=== PATIENT | female | born 1975 | race Hispanic/Latino ===

== ENCOUNTER 2018-11-05 18:11 | Emergency (ER) | payer OTHER ==
[2018-11-05] MEDS ORDERED: DEXAMETHASONE 4 MG TAB ONE (19:56)
[2018-11-05] MEDS ORDERED: AMOX/K CLAV 875 MG TAB ONE (19:56)
--- NOTE | 2018-11-05 20:44 | EDPHYS ---
Physician Documentation [facility] Name: Corinne Luther Age: 43 yrs Sex: Female : 1975 Arrival Date: 11/05/2018 Time: 18:13 Bed 25 Private MD: ED Physician Fred Kimbrough HPI: 11/05 19:37 This 43 yrs old Female presents to ER via Ambulatory with complaints of Cough, snw Congestion. 19:37 The patient or guardian reports airway noise, cough, with no sputum, hoarse voice. snw Onset: The symptoms/episode began/occurred suddenly, 3 day(s) ago, and became persistent. Severity of symptoms: At their worst the symptoms were moderate. Associated signs and symptoms: Pertinent positives: fever, sore throat. The patient has not experienced similar symptoms in the past. The patient has not recently seen a physician. SAFETY RISK LEAD: 18:25 LMP 10/13/2018 aj1 Historical: - Allergies: 18:25 No Known Allergies; aj1 - Home Meds: 18:25 None [Active]; aj1 - PMHx: 18:25 None; aj1 - PSHx: 18:25 None; aj1 - Immunization history:: Flu vaccine is not up to date. - Social history:: Smoking status: Patient/guardian denies using tobacco. - Ebola Screening: : Patient denies travel to an Ebola-affected area in the 21 days before illness onset. ROS: 19:37 Eyes: Negative for injury, pain, redness, and discharge. snw 19:37 Neck: Negative for injury, pain, and swelling, Cardiovascular: Negative for chest pain, palpitations, and edema. 19:37 Abdomen/GI: Negative for abdominal pain, nausea, vomiting, diarrhea, and constipation, Back: Negative for injury and pain, : Negative for injury, bleeding, discharge, and swelling, MS/Extremity: Negative for injury and deformity, Skin: Negative for injury, rash, and discoloration, Neuro: Negative for headache, weakness, numbness, tingling, and seizure. 19:37 Constitutional: Positive for body aches, fever, malaise. 19:37 ENT: Positive for sore throat. 19:37 Respiratory: Positive for cough, with no reported sputum. Exam: 19:37 Constitutional: This is a well developed, well nourished patient who is awake, alert, snw and in no acute distress. Head/Face: Normocephalic, atraumatic. Eyes: Pupils equal round and reactive to light, extra-ocular motions intact. Lids and lashes normal. Conjunctiva and sclera are non-icteric and not injected. Cornea within normal limits. Periorbital areas with no swelling, redness, or edema. ENT: Nares patent. No nasal discharge, no septal abnormalities noted. Tympanic membranes are normal and external auditory canals are clear. Oropharynx with no redness, swelling, or masses, exudates, or evidence of obstruction, uvula midline. Mucous membranes moist. Neck: Trachea midline, no thyromegaly or masses palpated, and no cervical lymphadenopathy. Supple, full range of motion without nuchal rigidity, or vertebral point tenderness. No Meningismus. Chest/axilla: Normal chest wall appearance and motion. Nontender with no deformity. No lesions are appreciated. Cardiovascular: Regular rate and rhythm with a normal S1 and S2. No gallops, murmurs, or rubs. Normal PMI, no JVD. No pulse deficits. Respiratory: Lungs have equal breath sounds bilaterally, clear to auscultation and percussion. No rales, rhonchi or wheezes noted. No increased work of breathing, no retractions or nasal flaring. Abdomen/GI: Soft, non-tender, with normal bowel sounds. No distension or tympany. No guarding or rebound. No evidence of tenderness throughout. Back: No spinal tenderness. No costovertebral tenderness. Full range of motion. Skin: Warm, dry with normal turgor. Normal color with no rashes, no lesions, and no evidence of cellulitis. MS/ Extremity: Pulses equal, no cyanosis. Neurovascular intact. Full, normal range of motion. Neuro: Awake and alert, GCS 15, oriented to person, place, time, and situation. Cranial nerves II-XII grossly intact. Motor strength 5/5 in all extremities. Sensory grossly intact. Cerebellar exam normal. Normal gait. Psych: Awake, alert, with orientation to person, place and time. Behavior, mood, and affect are within normal limits. Vital Signs: 18:25 Pulse 97; Resp 18; Temp 98.8; Pulse Ox 99% on R/A; Weight 70.76 kg (R); Height 4 ft. 11 aj1 in. (149.86 cm) (R); Pain 8/10; 18:28 BP 152 / 96; aj1 18:25 Body Mass Index 31.51 (70.76 kg, 149.86 cm) aj1 MDM: 19:28 Patient medically screened. snw 19:42 Data reviewed: vital signs, nurses notes. Data interpreted: Pulse oximetry: on room air snw is 99 %. Interpretation: normal. Counseling: I had a detailed discussion with the patient and/or guardian regarding: the historical points, exam findings, and any diagnostic results supporting the discharge/admit diagnosis, the presence of at least one elevated blood pressure reading (>120/80) during this emergency department visit, lab results, to return to the emergency department if symptoms worsen or persist or if there are any questions or concerns that arise at home. Special discussion: Based on the history and exam findings, there is no indication for further emergent testing or inpatient evaluation. I discussed with the patient/guardian the need to see the primary care provider for further evaluation of the symptoms. 11/05 18:28 Order name: Flu; Complete Time: 19:28 aj 11/05 18:28 Order name: Strep; Complete Time: 19:28 [facility] Administered Medications: 19:45 Drug: Augmentin 875 mg Route: PO; aj 19:48 Follow up: Response: No adverse reaction aj 19:45 Drug: Decadron 8 mg Route: PO; aj 19:47 Follow up: Response: No adverse reaction aj Disposition: 11/06 13:54 Co-signature as Attending Physician, Fred Kimbrough MD I agree with the assessment and kdr plan of care. Disposition: 11/05/18 19:39 Discharged to Home. Impression: Streptococcal pharyngitis. - Condition is Stable. - Discharge Instructions: Fever, Adult, Hypertension, Strep Throat, How to Take Your Blood Pressure, [id number], Rehydration, Adult, Form - Blood Pressure Record Sheet. - Prescriptions for Augmentin 875- 125 mg Oral Tablet - take 1 tablet by ORAL route every 12 hours for 10 days; 20 tablet. - Work release form, Medication Reconciliation Form, Thank You Letter, Antibiotic Education, Prescription Opioid Use form. - Follow up: Private Physician; When: 7 - 10 days; Reason: Recheck today's complaints, Continuance of care, Re-evaluation by your physician. Follow up: Emergency Department; When: As needed; Reason: Worsening of condition. Signatures: Dispatcher [employer] Susanne Guadarrama RN RN ajRox Mcclellan RN RN aj Rittger, Kevin, MD MD kdr Therrien, Shelly, RESIDENT SERVICES MANAGER-C RESIDENT SERVICES MANAGER-Csnw Corrections: (The following items were deleted from the chart) 11/05 19:48 19:39 11/05/2018 19:39 Discharged to Home. Impression: Streptococcal pharyngitis. aj Condition is Stable. Forms are Medication Reconciliation Form, Thank You Letter, Antibiotic Education, Prescription Opioid Use. Follow up: Private Physician; When: 7 - 10 days; Reason: Recheck today's complaints, Continuance of care, Re-evaluation by your physician. Follow up: Emergency Department; When: As needed; Reason: Worsening of condition. snw
--- NOTE | 2018-11-05 20:44 | ER ---
Nurse's Notes [facility] Name: Corinne Luther Age: 43 yrs Sex: Female : 1975 Arrival Date: 11/05/2018 Time: 18:13 Bed 25 Private MD: Diagnosis: Streptococcal pharyngitis Presentation: 11/05 18:24 Presenting complaint: Patient states: cough, sore throat, and fever since Friday. aj1 Transition of care: patient was not received from another setting of care. Resp Distress? No respiratory distress is noted at this time. Onset of symptoms was November 03, 2018. Risk Assessment: Do you want to hurt yourself or someone else? Patient reports no desire to harm self or others. Initial Sepsis Screen: Does the patient meet any 2 criteria? HR > 90 bpm. No. Patient's initial sepsis screen is negative. Does the patient have a suspected source of infection? No. Patient's initial sepsis screen is negative. Care prior to arrival: None. 18:24 Method Of Arrival: Ambulatory aj1 18:24 Acuity: HUNTER 4 aj1 Triage Assessment: 18:25 General: Appears in no apparent distress. uncomfortable, Behavior is calm, cooperative, aj1 appropriate for age. Pain: Complains of pain in left aspect of posterior pharynx and right aspect of posterior pharynx Pain currently is 8 out of 10 on a pain scale. EENT: Reports sore throat. Neuro: Level of Consciousness is awake, alert, obeys commands, Oriented to person, place, time, situation. Cardiovascular: Patient's skin is warm and dry. Respiratory: Reports cough that is non-productive, hacking, persistent Airway is patent Respiratory effort is even, unlabored, Respiratory pattern is regular, symmetrical. Respiratory: Breath sounds are clear bilaterally. RESPIRATORY PHYSICIAN: 18:25 LMP 10/13/2018 aj1 Historical: - Allergies: 18:25 No Known Allergies; aj1 - Home Meds: 18:25 None [Active]; aj1 - PMHx: 18:25 None; aj1 - PSHx: 18:25 None; aj1 - Immunization history:: Flu vaccine is not up to date. - Social history:: Smoking status: Patient/guardian denies using tobacco. - Ebola Screening: : Patient denies travel to an Ebola-affected area in the 21 days before illness onset. Screenin:46 Abuse screen: Denies threats or abuse. Denies injuries from another. Nutritional aj screening: No deficits noted. Tuberculosis screening: No symptoms or risk factors identified. Fall Risk None identified. Assessment: 19:46 General: Appears in no apparent distress. comfortable, Behavior is calm, cooperative, aj appropriate for age. Neuro: Level of Consciousness is awake, alert, obeys commands, Oriented to person, place, time, situation, Appropriate for age. Cardiovascular: Capillary refill < 3 seconds in bilateral fingers. Respiratory: Airway is patent Respiratory effort is even, unlabored, Respiratory pattern is regular, symmetrical. EENT: Reports pain when swallowing. Vital Signs: 18:25 Pulse 97; Resp 18; Temp 98.8; Pulse Ox 99% on R/A; Weight 70.76 kg (R); Height 4 ft. 11 aj1 in. (149.86 cm) (R); Pain 8/10; 18:28 BP 152 / 96; aj1 18:25 Body Mass Index 31.51 (70.76 kg, 149.86 cm) aj1 ED Course: 18:13 Patient arrived in ED. as 18:25 Triage completed. aj1 19:19 Rosalia Mg FNP-C [facility]. sn 19:19 Fred Kimbrough MD is Attending Physician. snw 19:40 Rox Frazier, RN is Primary Nurse. aj 19:46 Patient has correct armband on for positive identification. aj 19:46 No provider procedures requiring assistance completed. Patient did not have IV access aj during this emergency room visit. Administered Medications: 19:45 Drug: Augmentin 875 mg Route: PO; aj 19:48 Follow up: Response: No adverse reaction aj 19:45 Drug: Decadron 8 mg Route: PO; aj 19:47 Follow up: Response: No adverse reaction aj Outcome: 19:39 Discharge ordered by . snw 19:46 Discharged to home ambulatory. aj 19:46 Condition: good 19:46 Discharge instructions given to patient, Instructed on discharge instructions, follow up and referral plans. medication usage, Demonstrated understanding of instructions, follow-up care, medications, Prescriptions given X 1. 19:48 Patient left the ED. aj Signatures: Susanne Rock RN RN aj1 Rox Frazier RN RN Rosalia Frances, FISH ROE PROCESSOR-C FISH ROE PROCESSOR-Csnw Verónica Torres as
== END 2018-11-05 19:48 | disposition home or self-care (01) ==
LOC: ER 18:11
DX: J02.0 Streptococcal pharyngitis (principal)
CPT/HCPCS: 87081; 87804; 99283

== ENCOUNTER 2019-10-12 13:58 | Emergency (ER) | payer OTHER, SELFPAY ==
[2019-10-12 15:20] VITALS: BP 162/101; TEMP 97.7; O2SAT 100
--- NOTE | 2019-10-18 13:23 | ER ---
Nurse's Notes [facility] Name: Corinne Luther Age: 44 yrs Sex: Female : 1975 Arrival Date: 10/12/2019 Time: 14:01 Bed 23 Private MD: Diagnosis: Periapical abscess without sinus Presentation: 10/11 14:12 Chief complaint: Patient states: has broken tooth on right lower side, jaw swelling iw since yesterday. Coronavirus screen: Proceed with normal triage. Patient denies a cough. Patient denies shortness of breath or difficulty breathing. Patient denies measured and/or subjective temperature greater than 100.4F prior to today's visit. Patient denies travel on a cruise ship or to a country the [facility] currently lists as an affected area. Patient denies contact with known and/or suspected case of COVID-19. Ebola Screen: Patient negative for fever greater than or equal to 101.5 degrees Fahrenheit, and additional compatible Ebola Virus Disease symptoms Patient denies exposure to infectious person. Patient denies travel to an Ebola-affected area in the 21 days before illness onset. No symptoms or risks identified at this time. Initial Sepsis Screen: Does the patient meet any 2 criteria? No. Patient's initial sepsis screen is negative. Does the patient have a suspected source of infection? No. Patient's initial sepsis screen is negative. Risk Assessment: Do you want to hurt yourself or someone else? Patient reports no desire to harm self or others. Onset of symptoms was October 11, 2019. 14:12 Method Of Arrival: Ambulatory iw 14:12 Acuity: HUNTER 4 iw RESEARCH HOME ECONOMIST: 16:04 LMP N/A - iw Historical: - Allergies: 14:14 No Known Allergies; iw - Home Meds: 14:14 None [Active]; iw - PMHx: 14:14 None; iw - PSHx: 14:14 None; iw - Immunization history:: Adult Immunizations. - Social history:: Smoking status: Patient denies any tobacco usage or history of. Screenin:02 Abuse screen: Denies threats or abuse. Denies injuries from another. Nutritional iw screening: No deficits noted. Tuberculosis screening: No symptoms or risk factors identified. Fall Risk None identified. Assessment: 15:01 General: Appears in no apparent distress. comfortable, Behavior is calm, cooperative. iw Pain: Complains of pain in right cheek, right jaw and mouth. Neuro: Level of Consciousness is awake, alert, obeys commands, Oriented to person, place, time, situation. Cardiovascular: Patient's skin is warm and dry. Respiratory: Respiratory effort is even, unlabored, Respiratory pattern is regular, symmetrical. Derm: Skin is intact, is healthy with good turgor. Musculoskeletal: Range of motion: intact in all extremities. 15:14 Reassessment: Patient is alert, oriented x 3, equal unlabored respirations, skin aa5 warm/dry/pink. Vital Signs: 14:12 BP 162 / 101; Pulse 71; Resp 16; Temp 97.7(TE); Pulse Ox 100% on R/A; Weight 68.49 kg; iw Height 4 ft. 11 in. (149.86 cm); Pain 8/10; 14:12 Body Mass Index 30.50 (68.49 kg, 149.86 cm) iw ED Course: 14:01 Patient arrived in ED. as 14:13 Triage completed. iw 14:14 Arm band placed on. iw 14:58 Marvin Martin PA is PHCP. jr8 14:58 Santo Campa MD is Attending Physician. jr8 15:01 Re Amos, ROLDAN is Primary Nurse. iw 15:14 Patient has correct armband on for positive identification. aa5 15:14 No provider procedures requiring assistance completed. Patient did not have IV access aa5 during this emergency room visit. Administered Medications: No medications were administered Outcome: 15:09 Discharge ordered by . jr8 15:14 Discharged to home ambulatory. aa5 15:14 Condition: stable 15:14 Discharge instructions given to patient, Instructed on discharge instructions, follow up and referral plans. medication usage, Demonstrated understanding of instructions, follow-up care, medications, Prescriptions given X 2. 15:15 Patient left the ED. aa5 Signatures: Verónica Torres as Re Amos, ROLDAN MONTILLA Erika Corea RN RN aa5 Marvin Martin PA PA jr
--- NOTE | 2019-10-18 13:23 | EDPHYS ---
Physician Documentation [facility] Name: Corinne Luther Age: 44 yrs Sex: Female : 1975 Arrival Date: 10/12/2019 Time: 14:01 Bed 23 Private MD: ED Physician Santo Campa HPI: 10/11 15:06 This 44 yrs old Female presents to ER via Ambulatory with complaints of Facial jr8 Swelling. 15:06 The patient presents with broken tooth/teeth, pain, swelling. The problem is located in jr8 the right jaw. Onset: The symptoms/episode began/occurred gradually, 2 day(s) ago. Duration: The symptoms are continuous. Modifying factors: The symptoms are alleviated by nothing, the symptoms are aggravated by chewing, talking. Associated signs and symptoms: Pertinent positives: swelling, facial, mandibular. Severity of symptoms: At their worst the symptoms were moderate, in the emergency department the symptoms are unchanged. The patient has not experienced similar symptoms in the past. The patient has not recently seen a physician. Stated that she had broke her tooth some time ago but now having gum swelling and pain that is now causing pain and swelling to lower face . JEWELRY CONSULTANT: 16:04 LMP N/A - iw Historical: - Allergies: 14:14 No Known Allergies; iw - Home Meds: 14:14 None [Active]; iw - PMHx: 14:14 None; iw - PSHx: 14:14 None; iw - Immunization history:: Adult Immunizations. - Social history:: Smoking status: Patient denies any tobacco usage or history of. ROS: 15:06 Eyes: Negative for injury, pain, redness, and discharge, Neck: Negative for injury, jr8 pain, and swelling, Cardiovascular: Negative for chest pain, palpitations, and edema, Respiratory: Negative for shortness of breath, cough, wheezing, and pleuritic chest pain, Abdomen/GI: Negative for abdominal pain, nausea, vomiting, diarrhea, and constipation, Back: Negative for injury and pain, MS/Extremity: Negative for injury and deformity, Skin: Negative for injury, rash, and discoloration, Neuro: Negative for headache, weakness, numbness, tingling, and seizure. 15:06 ENT: Positive for dental pain, Gum pain Exam: 15:06 Constitutional: This is a well developed, well nourished patient who is awake, alert, jr8 and in no acute distress. Eyes: Pupils equal round and reactive to light, extra-ocular motions intact. Lids and lashes normal. Conjunctiva and sclera are non-icteric and not injected. Cornea within normal limits. Periorbital areas with no swelling, redness, or edema. Neck: Trachea midline, no thyromegaly or masses palpated, and no cervical lymphadenopathy. Supple, full range of motion without nuchal rigidity, or vertebral point tenderness. No Meningismus. Cardiovascular: Regular rate and rhythm with a normal S1 and S2. No gallops, murmurs, or rubs. Normal PMI, no JVD. No pulse deficits. Respiratory: Lungs have equal breath sounds bilaterally, clear to auscultation and percussion. No rales, rhonchi or wheezes noted. No increased work of breathing, no retractions or nasal flaring. Skin: Warm, dry with normal turgor. Normal color with no rashes, no lesions, and no evidence of cellulitis. MS/ Extremity: Pulses equal, no cyanosis. Neurovascular intact. Full, normal range of motion. Neuro: Awake and alert, GCS 15, oriented to person, place, time, and situation. Cranial nerves II-XII grossly intact. Motor strength 5/5 in all extremities. Sensory grossly intact. Cerebellar exam normal. Normal gait. 15:06 Head/face: Noted is swelling, that is mild, of the right jaw. 15:06 ENT: Exam is negative for earache, ear discharge, TM abnormalities, nasal discharge, Mouth: Lips: moist, Oral mucosa: pink and intact, moist, Gums: pink, Tongue: is normal, Posterior pharynx: Airway: patent, Tonsils: are normal in appearance, Uvula: midline, non-edematous, no erythema, swelling, is not appreciated, erythema, is not appreciated, Dental exam: gum swelling, that is moderate, specifically in the lower right first molar (#30), pain, that is moderate, specifically in the lower right first molar (#30). Vital Signs: 14:12 BP 162 / 101; Pulse 71; Resp 16; Temp 97.7(TE); Pulse Ox 100% on R/A; Weight 68.49 kg; iw Height 4 ft. 11 in. (149.86 cm); Pain 8/10; 14:12 Body Mass Index 30.50 (68.49 kg, 149.86 cm) MDM: 14:59 Patient medically screened. jr8 15:06 Data reviewed: vital signs, nurses notes, and as a result, I will discharge patient. jr8 Data interpreted: Pulse oximetry: on room air is 100 %. Interpretation: normal. Counseling: I had a detailed discussion with the patient and/or guardian regarding: the historical points, exam findings, and any diagnostic results supporting the discharge/admit diagnosis, the need for outpatient follow up, a dentist, to return to the emergency department if symptoms worsen or persist or if there are any questions or concerns that arise at home. Administered Medications: No medications were administered Disposition: 15:53 Co-signature as Attending Physician, Santo Campa MD. rn Disposition: 10/12/19 15:09 Discharged to Home. Impression: Periapical abscess without sinus. - Condition is Stable. - Discharge Instructions: Dental Abscess, Dental Pain, Root Canal. - Prescriptions for Augmentin 875- 125 mg Oral Tablet - take 1 tablet by ORAL route every 12 hours for 10 days; 20 tablet. Ibuprofen 800 mg Oral Tablet - take 1 tablet by ORAL route every 12 hours As needed take with food; 20 tablet. - Work release form, Medication Reconciliation Form, Thank You Letter, Antibiotic Education, Prescription Opioid Use form. - Follow up: Private Physician; When: 1 week; Reason: Recheck today's complaints, Continuance of care, Re-evaluation by your physician. - Problem is new. - Symptoms have improved. Signatures: Re Amos RN RN iw Nieto, Roman, MD MD rn Calderon, Audri, RN RN aa5 Marvin Martin PA PA jr8 Corrections: (The following items were deleted from the chart) 15:15 15:09 10/12/2019 15:09 Discharged to Home. Impression: Periapical abscess without aa5 sinus. Condition is Stable. Forms are Medication Reconciliation Form, Thank You Letter, Antibiotic Education, Prescription Opioid Use. Follow up: Private Physician; When: 1 week; Reason: Recheck today's complaints, Continuance of care, Re-evaluation by your physician. Problem is new. Symptoms have improved. jr8
== END 2019-10-12 15:15 | disposition home or self-care (01) ==
LOC: ER 13:58
DX: K04.7 Periapical abscess without sinus (principal)
CPT/HCPCS: 99282